=== PATIENT | female | born 1985 | race Caucasian/White ===

== ENCOUNTER → 2016-11-08 | Outpatient (CLI) | payer BC ==
[~2016-11-08] MED LIST: AUGM875T28 PO
--- NOTE | 2016-11-08 10:39 | REP ---
Left ankle four views : There is no fracture or dislocation. Mineralization and joint spaces are normal. There are no calcifications or foreign bodies. Impression: Negative left ankle . Signed by Mo Hoang MD 11/08/2016 10:31 A
== END ==
LOC: M WUC 09:51
PROVIDERS: ATTEND Physician Assistant
DX: M25.572 Pain in left ankle and joints of left foot (principal)

== ENCOUNTER 2016-12-20 03:45 | Emergency (ER) | payer OTHER, BC ==
[~2016-12-20] VITALS: Ht 172.7 cm; Wt 97.8 kg
[2016-12-20 04:00] VITALS: BP 140/76
[2016-12-20] MEDS ORDERED: AUGM875T28 PO (06:20)
== END 2016-12-20 06:23 | disposition home or self-care (01) ==
LOC: M ED 03:45
DX: S61.211A Laceration without foreign body of left index finger without damage to nail, initial encounter (principal); W27.2XXA Contact with scissors, initial encounter; Y92.59 Other trade areas as the place of occurrence of the external cause; Y93.89 Activity, other specified; Y99.0 Civilian activity done for income or pay; F17.210 Nicotine dependence, cigarettes, uncomplicated; Z98.0 Intestinal bypass and anastomosis status